=== PATIENT | male | born 1950 | race Caucasian/White ===

== ENCOUNTER → 2016-03-19 | Outpatient (CLI) | payer OTHER, BC ==
[2016-03-19 11:13] LABS: BILIRUBIN,TOTAL 0.9 mg/dL (0.3-1.2); LDL CHOLESTEROL,CALCULATED 15.8 mg/dL; TOTAL PROTEIN 7.7 g/dL (6.1-8.0)
== END ==
LOC: MOB LAB 08:46
PROVIDERS: ATTEND Internal Medicine Cardiovascular Disease
DX: E78.5 Hyperlipidemia, unspecified (principal)
CPT/HCPCS: 36415; 80061; 80076

== ENCOUNTER → 2016-03-21 | Outpatient (CLI) | payer OTHER, BC | LOC: MMPC 09:00 | PROVIDERS: ATTEND Family Medicine | DX: I10 Essential (primary) hypertension (principal); E78.01 Familial hypercholesterolemia; I25.10 Atherosclerotic heart disease of native coronary artery without angina pectoris; E11.9 Type 2 diabetes mellitus without complications; Z95.1 Presence of aortocoronary bypass graft | CPT/HCPCS: 99214; G0463 ==

== ENCOUNTER → 2016-07-23 | Outpatient (CLI) | payer OTHER, BC ==
[2016-07-24 05:17] LABS: BUN/CREATININE RATIO 19.52 (6-20); CALCIUM 10.1 mg/dL (8.7-10.7); CHOL/HDL RATIO 3.7 RATIO (0-4.0); LDL CHOLESTEROL,CALCULATED 42.6 mg/dL; SERUM ALBUMIN 4.4 g/dL (3.5-4.8)
[2016-07-24 13:59] LABS: HEMOGLOBIN A1C 7.01 % (4.2-6.0)
== END ==
LOC: MOB LAB 08:05
PROVIDERS: ATTEND Family Medicine
DX: E11.9 Type 2 diabetes mellitus without complications (principal); Z79.4 Long term (current) use of insulin; E78.5 Hyperlipidemia, unspecified; I10 Essential (primary) hypertension; R79.89 Other specified abnormal findings of blood chemistry
CPT/HCPCS: 36415; 80053; 80061; 83036

== ENCOUNTER → 2016-07-24 | Outpatient (CLI) | payer OTHER, BC | LOC: MMPC 09:00 | PROVIDERS: ATTEND Family Medicine | DX: I10 Essential (primary) hypertension (principal); I25.10 Atherosclerotic heart disease of native coronary artery without angina pectoris; E11.9 Type 2 diabetes mellitus without complications; R79.89 Other specified abnormal findings of blood chemistry | CPT/HCPCS: 99214; G0463 ==

== ENCOUNTER → 2016-07-30 | Outpatient (CLI) | payer OTHER, BC ==
--- NOTE | 2016-07-30 11:09 | DI ---
BILATERAL RENAL ULTRASOUND, 07/30/2016 7:52 AM: Clinical History: Elevated serum creatinine levels. Previous Exam: None at this facility. Scans are performed through both kidneys in multiple projections. The right kidney measures 111 mm, a nd the left kidney measures 120 mm. No solid lesion is seen in either kidney. There is a mid zone sim ple cyst of the right kidney measuring 4 cm in diameter. There is no right hydronephrosis or hydroure ter. There is hydronephrosis of the left kidney with pelviectasis but no obvious hydroureter. There i s a 10 mm hyperechoic lesion in a dilated lower pole calyx of the left kidney that is associated with acoustical shadowing. This is consistent with a 1 cm nonobstructing renal calculus. 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 Perfusion to both kidneys is symmetric a nd normal. The bladder is normal. Bilateral ureteral jets are visualized. There is an estimated prevo id bladder volume of 315 mL. There is 110 mL post void residual volume. Readin. 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 There is a left-sided ureteral jet visualize d but less prominent than that seen on the right side. In addition, there is a 1 cm hyperechoic lesio n in a dilated lower pole calyx that is associated with acoustical shadowing consistent with a nonobs tructing ureteral calculus in the left lower pole. 2. The right kidney is normal. The bladder is unremarkable and there is approximately 33% post void residual volume.
== END ==
LOC: US 07:48
PROVIDERS: ATTEND Family Medicine
DX: R79.89 Other specified abnormal findings of blood chemistry (principal); N13.2 Hydronephrosis with renal and ureteral calculous obstruction
CPT/HCPCS: 76770

== ENCOUNTER → 2016-09-06 | Outpatient (CLI) | payer OTHER, BC ==
[2016-09-06 10:43] LABS: BUN/CREATININE RATIO 17.36 (6-20); CALCIUM 9.8 mg/dL (8.7-10.7)
--- NOTE | 2016-09-06 10:46 | DI ---
CT ABDOMEN/PELVIS W/O CONTRAST,09/06/2016 10:13 AM: Clinical History: Left flank pain. Previous Exam: None at this facility. Findings: Multiple helically acquired CT images are obtained through the abdomen and pelvis without contrast, a nd demonstrate a 9 mm stone within the left ureteropelvic junction causing severe left hydronephrosis . There are other left renal parenchymal stones. There is a large 4 cm simple cyst within the right kidney. The liver, spleen, adrenals, pancreas and urinary bladder are unremarkable. There is no free air nor free fluid. A few peripheral vascular calcifications are seen. Skeletal structures are unremarkable. Impression: 9 mm obstructive stone within the left proximal ureteral pelvic junction causing severe left hydronep hrosis.
== END ==
LOC: CT 10:05
PROVIDERS: ATTEND Physician Assistant
DX: R79.89 Other specified abnormal findings of blood chemistry (principal); N13.2 Hydronephrosis with renal and ureteral calculous obstruction
CPT/HCPCS: 36415; 74176; 80048

== ENCOUNTER → 2016-09-16 | Outpatient (CLI) | payer OTHER, BC ==
[2016-09-16 13:36] LABS: BASOPHILS # (AUTO) 0.09 10*3/UL; BASOPHILS % (AUTO) 1.4 % (0-1); EOSINOPHILS # (AUTO) 0.29 10*3/UL; EOSINOPHILS % (AUTO) 4.5 % (0-8); HEMOGLOBIN 14.6 g/dL (14.0-18.0); LYMPHOCYTES # (AUTO) 1.66 10*3/uL; MEAN CORPUSCULAR HEMOGLOBIN 30.5 PG (27-31); MEAN CORPUSCULAR HGB CONC 33.2 g/dL (33-37); MEAN CORPUSCULAR VOLUME 92.1 FL (80-90); MEAN PLATELET VOLUME 11.1 FL (7.4-12.2); MONOCYTES # (AUTO) 0.85 10*3/UL (0.3-0.8); MONOCYTES % (AUTO) 13.2 % (5-15); NEUTROPHILS # (AUTO) 3.53 10*3/UL; NEUTROPHILS % (AUTO) 54.9 % (50-80); PLATELET MORPHOLOGY COMMENT NORMAL MORPHOLOGY (NORM); RBC MORPHOLOGY COMMENT NORMAL MORPHOLOGY (NORM); RED BLOOD COUNT 4.78 10^6/uL (4.70-6.10); WBC MORPHOLOGY COMMENT NORMAL MORPHOLOGY (NORM)
--- NOTE | 2016-09-16 14:33 | EKG ---
[address] [address] Measurements Intervals [place] Rate: 70 P: 69 NV: 219 QRS: 99 QRSD: 186 T: 47 QT: 441 QTc: 462 Interpretive Statements SINUS RHYTHM WITH FIRST DEGREE AV BLOCK RIGHT BUNDLE BRANCH BLOCK [120+ ms QRS DURATION, UPRIGHT V1, 40+ ms S IN I/aVL/V4/V5/V6] Compared to ECG 04/24/2015 16:20:11 First degree AV block now present Sinus bradycardia no longer present T-wave abnormality no longer present Possible ischemia no longer present Electronically Signed On 09-17-16 15:32:01 MDT by Jamar Rain MD [email or web address]
== END ==
LOC: LAB 12:21
PROVIDERS: ATTEND Physician Assistant
DX: N20.1 Calculus of ureter (principal); I45.19 Other right bundle-branch block; I44.0 Atrioventricular block, first degree
CPT/HCPCS: 85025; 87088; 93005; 93010

== ENCOUNTER → 2016-10-23 | Outpatient (CLI) | payer OTHER, BC ==
[2016-10-23 13:20] LABS: BUN/CREATININE RATIO 15.78 (6-20); SERUM ALBUMIN 4.7 g/dL (3.5-4.8)
[2016-10-23 13:23] LABS: HEMOGLOBIN A1C 8.71 % (4.2-6.0)
== END ==
LOC: MOB LAB 10:52
PROVIDERS: ATTEND Family Medicine
DX: E11.9 Type 2 diabetes mellitus without complications (principal); Z79.4 Long term (current) use of insulin; I25.10 Atherosclerotic heart disease of native coronary artery without angina pectoris; R79.89 Other specified abnormal findings of blood chemistry; I10 Essential (primary) hypertension; R25.1 Tremor, unspecified
CPT/HCPCS: 36415; 80053; 83036; 99214; G0463